=== PATIENT | male | born 1940 | race Hispanic/Latino ===

== ENCOUNTER 2017-07-02 13:13 | Inpatient (IN) | payer MEDICARE, OTHER ==
[~2017-07-02 13:13] MED LIST: ADRENALIN ONE; ATROPINE 0.1% (CARDIAC) ONE; SODIUM BICARBONATE IV ONE
[2017-07-02] MEDS ORDERED: NACL 0.9% 1000 ML 1,000 ML ONE ×2 (13:32→14:15)
[2017-07-02] MEDS ORDERED: NACL 0.9% 1000 ML 1,000 ML IV ONE ×2 (13:34→14:20)
[2017-07-02] MEDS ORDERED: VASELINE LIP THERAPY TP PRN (14:22)
[2017-07-02] MEDS ORDERED: ARTIFICIAL TEARS OPHTH OINT OU PRN (14:22)
[2017-07-02] MEDS ORDERED: INTROPIN DRIP 800 MG/D5W 250 ML 800 MG/250 ML BAG IV ONE (14:30)
--- NOTE | 2017-07-02 14:30 | Emergency Department Report ---
ED CPR HPI - General Chief Complaint: Cardiac Arrest/CPR Stated Complaint: CARDIAC ARREST Time Seen by Provider: 07/02/17 14:20 Source: EMS Mode of arrival: Stretcher Limitations: Other - History of Present Illness Initial Comments: Patient is a 76-year-old male brought by EMS in cardiac arrest,CPR in progress. Per EMS report, patient was found down 10 minutes after he left the court room to the bathroom. Initial reading by EMS was V. fib, patient received approximately 3 shock and given 300 mg of IV amiodarone, patient regained his pulse but as they approaching the ER patient lost his pulse again. Patient intubated by EMS. ET tube confirmed by auscultation. Initial rhythm in the ER was asystole, ACLS protocol continued, patient rhythm change to PEA. Patient lost his pulse several times. EKG did not show STEMI. Patient is started on IV fluids and dopamine. Triple-lumen central line right femoral placed by me and Levophed drip amiodarone drip started. There is no family at this moment. For further information please refer to code sheet. Complaint: found unresponsive Place: work Bystander CPR Performed: Yes AED Applied by Bystander/Floor Care Technician: Yes Shock Advised: Yes Number of Shocks Delivered: >3 Initial Findings in the Field: unresponsive, VTACH/VFIB Associated Injuries: No - Related Data Allergies Allergy/AdvReac Type Severity Reaction Status Date / Time Unable to Assess Allergy Unverified 07/02/17 14:15 ED Review of Systems ROS: Stated complaint: CARDIAC ARREST Other details as noted in HPI Comment: Unobtainable due to pts medical conditions ED Past Medical Hx - Social History Smoking Status: Unknown if ever smoked ED Physical Exam - General Limitations: Other General appearance: other (in cardiac arrest CPR in progress) - Head Head exam: Present: atraumatic, normocephalic, normal inspection - Eye Eye exam: Present: normal appearance, other (pupils are 4 mm fixed and dilated and nonreactive to light.) - ENT ENT exam: Present: normal exam, normal orophraynx - Neck Neck exam: Present: normal inspection - Respiratory Respiratory exam: Present: other (good breath sounds on both sides with ventilation) - Cardiovascular Cardiovascular Exam: Present: other (no pulse) - GI/Abdominal GI/Abdominal exam: Present: soft - Extremities Exam Extremities exam: Present: normal inspection - Back Exam Back exam: Present: normal inspection - Neurological Exam Neurological exam: Present: other (intubated) - Skin Skin exam: Present: warm, dry ED Course Vital Signs 07/02/17 07/02/17 07/02/17 13:12 13:13 13:14 Temperature Pulse Rate 80 124 H 124 H Respiratory 11 L 35 H 22 Rate Blood Pressure 81/39 81/39 O2 Sat by Pulse 24 L 16 L Oximetry 07/02/17 07/02/17 07/02/17 13:16 13:18 13:20 Temperature Pulse Rate 184 H 183 H 138 H Respiratory 84 H Rate Blood Pressure 81/39 O2 Sat by Pulse 74 L 51 L Oximetry 07/02/17 07/02/17 07/02/17 13:22 13:24 13:26 Temperature Pulse Rate 197 H 193 H 65 Respiratory 102 H 101 H 21 Rate Blood Pressure O2 Sat by Pulse 81 L 87 83 L Oximetry 07/02/17 07/02/17 07/02/17 13:28 13:30 13:31 Temperature Pulse Rate 64 55 L 51 L Respiratory 20 22 19 Rate Blood Pressure 91/48 62/33 O2 Sat by Pulse 86 85 82 L Oximetry 07/02/17 07/02/17 07/02/17 13:32 13:34 13:36 Temperature Pulse Rate 47 L 164 H 157 H Respiratory 9 L 81 H 104 H Rate Blood Pressure 62/33 62/33 62/33 O2 Sat by Pulse 81 L 76 L 92 Oximetry 07/02/17 07/02/17 07/02/17 13:38 13:40 13:42 Temperature Pulse Rate 151 H 192 H 55 L Respiratory 102 H 102 H 13 Rate Blood Pressure 62/33 62/33 62/33 O2 Sat by Pulse 87 86 92 Oximetry 07/02/17 07/02/17 07/02/17 13:44 13:45 13:46 Temperature Pulse Rate 61 62 62 Respiratory 21 24 24 Rate Blood Pressure 68/40 76/37 76/37 O2 Sat by Pulse 93 90 86 Oximetry 07/02/17 07/02/17 07/02/17 13:48 13:50 13:52 Temperature Pulse Rate 104 H 57 L 56 L Respiratory 18 21 5 L Rate Blood Pressure 76/37 76/37 66/36 O2 Sat by Pulse 78 L 74 L 67 L Oximetry 07/02/17 07/02/17 07/02/17 13:54 13:56 13:58 Temperature Pulse Rate 55 L 54 L 56 L Respiratory 21 24 24 Rate Blood Pressure 66/36 58/30 58/30 O2 Sat by Pulse 65 L 66 L 68 L Oximetry 07/02/17 07/02/17 07/02/17 13:59 14:00 14:02 Temperature Pulse Rate 58 L 58 L 61 Respiratory 25 H 24 21 Rate Blood Pressure 59/32 59/32 59/32 O2 Sat by Pulse 68 L 69 L 73 L Oximetry 07/02/17 07/02/17 07/02/17 14:03 14:04 14:06 Temperature Pulse Rate 63 64 66 Respiratory 25 H 22 23 Rate Blood Pressure 65/36 65/36 65/36 O2 Sat by Pulse 75 L 76 L 79 L Oximetry 07/02/17 07/02/17 07/02/17 14:08 14:10 14:12 Temperature Pulse Rate 67 69 71 Respiratory 24 24 25 H Rate Blood Pressure 65/36 65/36 65/36 O2 Sat by Pulse 80 L 80 L 81 L Oximetry 07/02/17 07/02/17 07/02/17 14:14 14:15 14:16 Temperature Pulse Rate 70 72 73 Respiratory 21 26 H 26 H Rate Blood Pressure 65/36 60/35 60/35 O2 Sat by Pulse 81 L 79 L 79 L Oximetry 07/02/17 07/02/17 07/02/17 14:18 14:20 14:22 Temperature Pulse Rate 73 75 76 Respiratory 25 H 19 22 Rate Blood Pressure 60/35 60/35 60/35 O2 Sat by Pulse 80 L 81 L 80 L Oximetry 07/02/17 07/02/17 07/02/17 14:24 14:26 14:28 Temperature Pulse Rate 76 75 74 Respiratory 18 16 15 Rate Blood Pressure 55/31 55/31 55/31 O2 Sat by Pulse 81 L 81 L 81 L Oximetry 07/02/17 07/02/17 07/02/17 14:30 14:31 14:32 Temperature Pulse Rate 111 H 71 71 Respiratory 11 L 11 L 11 L Rate Blood Pressure 90/55 56/30 56/30 O2 Sat by Pulse 88 77 L 77 L Oximetry 07/02/17 07/02/17 07/02/17 14:34 14:36 14:38 Temperature Pulse Rate 71 69 67 Respiratory 17 20 17 Rate Blood Pressure 64/33 64/33 64/33 O2 Sat by Pulse 77 L 75 L 76 L Oximetry 07/02/17 07/02/17 07/02/17 14:40 14:41 14:42 Temperature Pulse Rate 64 63 62 Respiratory 26 H 22 24 Rate Blood Pressure 64/33 60/35 60/35 O2 Sat by Pulse 76 L 76 L 79 L Oximetry 07/02/17 07/02/17 07/02/17 14:44 14:45 14:47 Temperature Pulse Rate 61 60 62 Respiratory 25 H 23 19 Rate Blood Pressure 60/35 68/40 68/40 O2 Sat by Pulse 76 L 81 L 69 L Oximetry 07/02/17 07/02/17 07/02/17 14:49 14:50 14:51 Temperature Pulse Rate 66 65 66 Respiratory 19 20 21 Rate Blood Pressure 68/40 67/40 67/40 O2 Sat by Pulse 66 L 67 L 72 L Oximetry 07/02/17 07/02/17 07/02/17 14:53 14:55 15:00 Temperature Pulse Rate 67 67 70 Respiratory 19 17 19 Rate Blood Pressure 67/40 60/35 81/39 O2 Sat by Pulse 73 L 68 L 70 L Oximetry 07/02/17 07/02/17 07/02/17 15:05 15:10 15:15 Temperature Pulse Rate 72 72 72 Respiratory 22 13 22 Rate Blood Pressure 81/39 70/37 70/37 O2 Sat by Pulse 67 L 69 L 70 L Oximetry 07/02/17 07/02/17 07/02/17 15:20 15:25 15:30 Temperature Pulse Rate 72 71 71 Respiratory 20 16 15 Rate Blood Pressure 70/45 78/43 81/42 O2 Sat by Pulse 71 L 76 L 74 L Oximetry 07/02/17 07/02/17 07/02/17 15:35 15:41 15:45 Temperature Pulse Rate 71 70 72 Respiratory 19 20 19 Rate Blood Pressure 87/40 66/39 59/36 O2 Sat by Pulse 73 L 67 L 70 L Oximetry 07/02/17 07/02/17 07/02/17 15:50 15:55 16:00 Temperature Pulse Rate 70 71 71 Respiratory 21 21 23 Rate Blood Pressure 71/39 70/38 65/40 O2 Sat by Pulse 65 L 65 L 68 L Oximetry 07/02/17 07/02/17 07/02/17 16:05 16:10 16:15 Temperature Pulse Rate 70 69 70 Respiratory 28 H 21 22 Rate Blood Pressure 63/38 68/40 67/41 O2 Sat by Pulse 56 L 59 L 62 L Oximetry 07/02/17 07/02/17 07/02/17 16:20 16:25 16:30 Temperature Pulse Rate 70 71 71 Respiratory 29 H 26 H 25 H Rate Blood Pressure 63/38 64/38 66/39 O2 Sat by Pulse 58 L 67 L Oximetry 07/02/17 07/02/17 07/02/17 16:35 16:40 16:45 Temperature Pulse Rate 69 71 70 Respiratory 22 25 H 16 Rate Blood Pressure 66/39 62/37 62/38 O2 Sat by Pulse 68 L 62 L 61 L Oximetry 07/02/17 07/02/17 07/02/17 16:50 16:55 17:01 Temperature Pulse Rate 68 70 66 Respiratory 10 L 21 11 L Rate Blood Pressure 55/32 61/34 61/34 O2 Sat by Pulse 75 L 63 L 79 L Oximetry 07/02/17 07/02/17 07/02/17 17:05 17:10 17:15 Temperature Pulse Rate 71 71 71 Respiratory 26 H 25 H 23 Rate Blood Pressure 83/46 77/50 82/45 O2 Sat by Pulse 74 L 73 L 74 L Oximetry 07/02/17 07/02/17 07/02/17 17:21 17:25 17:30 Temperature Pulse Rate 73 71 70 Respiratory 16 30 H 20 Rate Blood Pressure 89/25 89/25 84/56 O2 Sat by Pulse 73 L 73 L 72 L Oximetry 07/02/17 07/02/17 07/02/17 17:35 17:40 17:45 Temperature Pulse Rate 71 74 77 Respiratory 14 15 19 Rate Blood Pressure 77/51 90/51 90/51 O2 Sat by Pulse 73 L 72 L 74 L Oximetry 07/02/17 07/02/17 07/02/17 17:50 17:55 18:00 Temperature Pulse Rate 106 H 77 77 Respiratory 18 29 H 28 H Rate Blood Pressure 103/60 96/56 96/49 O2 Sat by Pulse 86 76 L 79 L Oximetry 07/02/17 07/02/17 07/02/17 18:05 18:11 18:15 Temperature Pulse Rate 79 79 79 Respiratory 17 25 H 31 H Rate Blood Pressure 86/56 86/56 102/63 O2 Sat by Pulse 80 L 80 L 82 L Oximetry 07/02/17 07/02/17 07/02/17 18:21 18:25 18:30 Temperature Pulse Rate 85 82 83 Respiratory 23 24 31 H Rate Blood Pressure 97/56 97/56 113/54 O2 Sat by Pulse 81 L 81 L 81 L Oximetry 07/02/17 07/02/17 07/02/17 18:34 18:35 18:41 Temperature Pulse Rate 84 89 Respiratory 24 22 29 H Rate Blood Pressure 117/54 115/72 O2 Sat by Pulse 80 L 82 L 82 L Oximetry 07/02/17 07/02/17 07/02/17 18:45 18:51 18:55 Temperature Pulse Rate 84 87 87 Respiratory 22 34 H 28 H Rate Blood Pressure 110/62 102/60 94/63 O2 Sat by Pulse 84 85 Oximetry 07/02/17 07/02/17 07/02/17 19:00 19:05 19:11 Temperature Pulse Rate 76 88 67 Respiratory 27 H 26 H 35 H Rate Blood Pressure 103/60 103/60 100/66 O2 Sat by Pulse 88 94 Oximetry 07/02/17 07/02/17 07/02/17 19:15 19:20 19:25 Temperature Pulse Rate 77 92 H 94 H Respiratory 29 H 21 35 H Rate Blood Pressure 100/66 120/80 124/74 O2 Sat by Pulse 90 90 87 Oximetry 07/02/17 07/02/17 07/02/17 19:30 19:33 19:35 Temperature 94.4 F L Pulse Rate 93 H 112 H Respiratory 24 17 Rate Blood Pressure 117/73 117/73 O2 Sat by Pulse 86 85 Oximetry 07/02/17 07/02/17 07/02/17 19:41 19:45 19:51 Temperature Pulse Rate 95 H 96 H 111 H Respiratory 21 26 H 30 H Rate Blood Pressure 117/73 117/73 90/55 O2 Sat by Pulse 85 89 88 Oximetry 07/02/17 07/02/17 07/02/17 19:55 20:00 20:05 Temperature Pulse Rate 101 H 95 H 95 H Respiratory 22 21 20 Rate Blood Pressure 90/55 84/58 84/58 O2 Sat by Pulse 89 91 89 Oximetry 07/02/17 07/02/17 07/02/17 20:11 20:15 20:21 Temperature Pulse Rate 100 H 94 H 88 Respiratory 16 16 22 Rate Blood Pressure 84/58 85/46 85/46 O2 Sat by Pulse 92 90 93 Oximetry 07/02/17 07/02/17 07/02/17 20:25 20:31 20:35 Temperature Pulse Rate 74 76 83 Respiratory 23 17 27 H Rate Blood Pressure 85/46 72/41 72/41 O2 Sat by Pulse 94 91 94 Oximetry 07/02/17 07/02/17 07/02/17 20:41 20:45 20:51 Temperature Pulse Rate 96 H 94 H 101 H Respiratory 25 H 31 H 36 H Rate Blood Pressure 72/41 122/72 122/72 O2 Sat by Pulse 90 90 89 Oximetry 07/02/17 07/02/17 07/02/17 20:55 21:01 21:05 Temperature Pulse Rate 99 H 103 H 104 H Respiratory 33 H 29 H 25 H Rate Blood Pressure 122/72 122/72 111/64 O2 Sat by Pulse 89 92 90 Oximetry 07/02/17 07/02/17 07/02/17 21:11 21:15 21:18 Temperature Pulse Rate 102 H 101 H 94 H Respiratory 28 H 27 H Rate Blood Pressure 111/64 111/64 114/65 O2 Sat by Pulse 91 91 Oximetry 07/02/17 07/02/17 07/02/17 21:21 21:25 21:30 Temperature Pulse Rate 102 H 103 H 104 H Respiratory 25 H 26 H 22 Rate Blood Pressure 114/65 114/65 109/64 O2 Sat by Pulse 92 91 90 Oximetry 07/02/17 07/02/17 07/02/17 21:35 21:41 21:45 Temperature Pulse Rate 106 H 108 H 107 H Respiratory 16 15 18 Rate Blood Pressure 109/64 109/64 113/69 O2 Sat by Pulse 92 91 91 Oximetry 07/02/17 07/02/17 07/02/17 21:51 21:55 22:00 Temperature Pulse Rate 108 H 107 H 107 H Respiratory 13 18 16 Rate Blood Pressure 109/64 109/64 108/67 O2 Sat by Pulse 93 93 92 Oximetry 07/02/17 07/02/17 07/02/17 22:05 22:11 22:15 Temperature Pulse Rate 108 H 109 H 109 H Respiratory 21 30 H 14 Rate Blood Pressure 108/67 108/67 109/69 O2 Sat by Pulse 92 92 93 Oximetry 07/02/17 07/02/17 07/02/17 22:21 22:26 22:30 Temperature Pulse Rate 109 H 110 H 110 H Respiratory 21 21 19 Rate Blood Pressure 108/67 109/69 109/69 O2 Sat by Pulse 93 93 94 Oximetry 07/02/17 07/02/17 07/02/17 22:35 22:41 22:45 Temperature Pulse Rate 109 H 110 H 111 H Respiratory 17 20 28 H Rate Blood Pressure 108/60 O2 Sat by Pulse 93 94 93 Oximetry 07/02/17 07/02/17 07/02/17 22:51 22:55 23:00 Temperature Pulse Rate 109 H 110 H 109 H Respiratory 22 31 H 18 Rate Blood Pressure 108/60 108/60 97/63 O2 Sat by Pulse 93 94 91 Oximetry 07/02/17 07/02/17 07/02/17 23:05 23:11 23:15 Temperature Pulse Rate 106 H 112 H 110 H Respiratory 30 H 19 23 Rate Blood Pressure 97/63 97/63 100/64 O2 Sat by Pulse 92 93 94 Oximetry 07/02/17 07/02/17 07/02/17 23:21 23:25 23:30 Temperature Pulse Rate 110 H 109 H 108 H Respiratory 21 26 H 25 H Rate Blood Pressure 100/64 97/63 99/57 O2 Sat by Pulse 93 93 93 Oximetry 07/02/17 07/02/17 07/02/17 23:35 23:38 23:41 Temperature Pulse Rate 109 H 108 H 106 H Respiratory 22 22 23 Rate Blood Pressure 99/57 99/57 99/57 O2 Sat by Pulse 94 93 93 Oximetry 07/02/17 07/02/17 07/02/17 23:45 23:47 23:51 Temperature Pulse Rate 108 H 108 H 107 H Respiratory 20 22 25 H Rate Blood Pressure 100/63 100/63 100/63 O2 Sat by Pulse 92 92 94 Oximetry 07/02/17 07/03/17 07/03/17 23:55 00:00 00:01 Temperature 101 F H Pulse Rate 108 H 105 H Respiratory 21 19 Rate Blood Pressure 99/57 99/57 O2 Sat by Pulse 93 92 Oximetry 07/03/17 07/03/17 07/03/17 00:05 00:11 00:15 Temperature Pulse Rate 106 H 107 H 105 H Respiratory 19 17 22 Rate Blood Pressure 99/57 99/57 99/57 O2 Sat by Pulse 93 92 92 Oximetry 07/03/17 07/03/17 07/03/17 00:21 00:25 00:31 Temperature Pulse Rate 106 H 105 H 103 H Respiratory 24 21 23 Rate Blood Pressure 99/57 99/57 99/57 O2 Sat by Pulse 93 91 92 Oximetry 07/03/17 07/03/17 07/03/17 00:35 00:41 00:45 Temperature Pulse Rate 101 H 104 H 102 H Respiratory 21 32 H 18 Rate Blood Pressure 99/57 99/57 99/57 O2 Sat by Pulse 91 92 Oximetry 07/03/17 07/03/17 07/03/17 00:51 00:55 01:01 Temperature Pulse Rate 101 H 101 H 101 H Respiratory 22 21 26 H Rate Blood Pressure 99/57 99/57 99/57 O2 Sat by Pulse 88 94 92 Oximetry 07/03/17 07/03/17 07/03/17 01:05 01:11 01:15 Temperature Pulse Rate 103 H 104 H 105 H Respiratory 28 H 22 26 H Rate Blood Pressure 99/57 99/57 63/33 O2 Sat by Pulse 85 87 85 Oximetry 07/03/17 07/03/17 07/03/17 01:21 01:25 01:27 Temperature Pulse Rate 106 H 106 H 104 H Respiratory 20 26 H Rate Blood Pressure 63/33 63/33 O2 Sat by Pulse 86 87 94 Oximetry 07/03/17 07/03/17 07/03/17 01:31 01:35 01:41 Temperature Pulse Rate 106 H 104 H 100 H Respiratory 22 24 24 Rate Blood Pressure 63/33 63/33 63/33 O2 Sat by Pulse 88 95 93 Oximetry 07/03/17 07/03/17 07/03/17 01:45 01:51 01:55 Temperature Pulse Rate 97 H 90 77 Respiratory 20 25 H 23 Rate Blood Pressure 63/33 62/30 62/30 O2 Sat by Pulse 92 94 95 Oximetry 07/03/17 07/03/17 07/03/17 02:01 02:05 02:11 Temperature Pulse Rate 56 L Respiratory 21 24 24 Rate Blood Pressure 62/30 62/30 62/30 O2 Sat by Pulse Oximetry 07/03/17 07/03/17 07/03/17 02:15 02:21 02:25 Temperature Pulse Rate Respiratory 25 H 24 24 Rate Blood Pressure 62/30 62/30 62/30 O2 Sat by Pulse 94 Oximetry 07/03/17 07/03/17 07/03/17 02:31 02:35 02:41 Temperature Pulse Rate Respiratory 16 0 L 0 L Rate Blood Pressure 62/30 62/30 62/30 O2 Sat by Pulse Oximetry - Reevaluation(s) Reevaluation #1: 07/02/17 15:51 Patient x-ray showed right pneumothorax. Chest tube is inserted in the right hemothorax, with immediate pereira of air. - Central Line Placement Right Femoral Consent Obtained: emergent situation Time Out Performed: Yes Patient Placed on Monitor/Pulse Ox: Yes MD Prep: mask, gown, gloves Central Line Prep: Povidone-Iodine 1%, Chlorhexidine scrub, sterile drapes applied Local Anesthesia Used: Lidocaine 2% Amount of Anesthesia Used (mls): 5 Central Line Lumen Inserted: triple Bloods Obtained for Lab: Yes Central Line Position: good blood return, sutured in place with 2-0 Dressing Applied: Tegaderm, sterile gauze/tape Patient Tolerated Procedure: well, no complications Complications: none - Chest Tube Chest Tube Location: fifth interspace Chest Tube Procedure: betadine prep, sterile drapes applied, sterile dressing applied Anesthesia: 1% Lidocaine Volume Anesthetic (ccs): 5 Pereira of Air Glynn: Yes Number of Attempts: 1 Tube Sutured to Skin: Yes Post Procedure CXR?: Yes ED Medical Decision Making - Lab Data Result diagrams: 07/03/17 00:59 07/03/17 00:59 Critical Care Time: Yes Critical care time in (mins) excluding proc time.: 120 Critical care attestation.: If time is entered above; I have spent that time in minutes in the direct care of this critically ill patient, excluding procedure time. ED Disposition Clinical Impression: Cardiopulmonary arrest, Pneumothorax Disposition: OP ADMIT IP TO THIS HOSP Is pt being admited?: Yes Condition: Critical
[2017-07-02 14:44] LABS: Hematocrit 36.2 % (35.5-45.6); Mean Corpuscular HGB Conc 33 % (32-34); Mean Corpuscular Hemoglobin 36 pg (28-32); Mean Corpuscular Volume 108 fl (84-94); Platelet Count 189 K/mm3 (140-440); Red Blood Count 3.35 M/mm3 (3.65-5.03); Red Cell Distribution Width 12.6 % (13.2-15.2)
[2017-07-02 14:55] LABS: Albumin 2.5 g/dL (3.9-5); Calcium 7.6 mg/dL (8.4-10.2)
[2017-07-02] MEDS ORDERED: LEVOPHED DRIP 4 MG/NS 250 ML 4 MG/250 ML BAG IV SCH ×2 (15:00→20:40)
[2017-07-02] MEDS ORDERED: DIPRIVAN 10 MG/ML 1,000 MG/100 ML BOTTLE IV SCH (15:00)
[2017-07-02] MEDS ORDERED: XYLOCAINE 1%/ EPI 1:100,000 INFILTRATI ONE (15:22)
--- NOTE | 2017-07-02 15:29 | Consultation ---
History of Present Illness Consult date: 07/02/17 Requesting physician: ANTONIA DODD Consult reason: cardiac arrest History of present illness: Patient is a 76-year-old male who is previously unknown to our practice. He is intubated and unresponsive s/p cardiac arrest with no family at bedside on evaluation and thus HPI is obtained per the chart. Pt was brought by EMS in cardiac arrest with CPR in progress. Per EMS report, patient was found down 10 minutes after he left the court room to go to the bathroom. 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 Initial reading by EMS was V. fib, patient received approximately 4 shocks and was given 300 mg of IV amiodarone, patient regained his pulse and then lost his pulse again. Pt was intubated per EMS in the field. Following arrival to ED, initial rhythm was asystole and ACLS protocol was continued with PEA noted and eventual ROSC. Also following arrival, pt was noted to have right pneumothorax with pneumomediastinum and subsequently a right-sided chest tube was placed. On evaluation, pt is on levophed and amio gtts. Decorticate posturing v. seizure like activity is noted on examination. Initial troponin is 0.035, lactic acid is 10. Past History Past Medical History: other (unable to obtain) Past Surgical History: Other (unable to obtain) Social history: other (unable to obtain ) Family history: other (unable to obtain ) Medications and Allergies Allergies Allergy/AdvReac Type Severity Reaction Status Date / Time Unable to Assess Allergy Unverified 07/02/17 14:15 Active Meds: Active Medications Hydrophilic Ointment (Vaseline Lip Therapy) 1 applic TP Q2HR PRN PRN Reason: Dry Lips Propofol (Diprivan 10 Mg/Ml) 1,000 mg in 100 mls @ 3.538 mls/hr IV TITR JIM; 5 MCG/KG/MIN PRN Reason: Protocol Norepinephrine (Levophed Drip 4 Mg/Ns 250 Ml) 4 mg in 250 mls @ 7.5 mls/hr IV TITR JIM; 2 MCG/MIN PRN Reason: Protocol Last Titration: 07/02/17 14:43 Dose: 20 mcg/min, 75 mls/hr Multi-Ingred Cream/Lotion/Oil/Oint (Artificial Tears Ophth Oint) 1 applic OU Q4HR PRN PRN Reason: Dry Eye(s) Review of Systems ROS unobtainable: due to endotracheal tube, due to mental status Physical Examination Vital Signs Pulse Resp 80 11 L 07/02/17 13:12 07/02/17 13:12 General appearance: other (intubated, nonresponsive) HEENT: Positive: Other (pupils fixed and dilated) Neck: Positive: neck supple, trachea midline Cardiac: Positive: Reg Rate and Rhythm, S1/S2 Lungs: Positive: Decreased Breath Sounds, Ventilated Respirations Neuro: Positive: Other (unresponsive, decorticate v. seizure like activity noted ) Abdomen: Positive: Soft Skin: Positive: Clear. Negative: Rash, Wound Musculoskeletal: No Fluid Collection Extremities: Absent: edema Results 07/03/17 00:59 07/03/17 00:59 Cardiac Enzymes 07/02/17 Range/Units Unknown AST 211 H (5-40) units/L CBC 07/02/17 Range/Units Unknown WBC 10.4 (4.5-11.0) K/mm3 RBC 3.35 L (3.65-5.03) M/mm3 Hgb 12.0 (11.8-15.2) gm/dl Hct 36.2 (35.5-45.6) % Plt Count 189 (140-440) K/mm3 Lymph # [facility] Comprehensive Metabolic Panel 07/02/17 Range/Units Unknown Sodium 142 (137-145) mmol/L Potassium 4.8 (3.6-5.0) mmol/L Chloride 97.1 L (98-107) mmol/L Carbon Dioxide 23 (22-30) mmol/L BUN 27 H (9-20) mg/dL Creatinine 1.5 (0.8-1.5) mg/dL Glucose 180 H (75-100) mg/dL Calcium 7.6 L (8.4-10.2) mg/dL AST 211 H (5-40) units/L ALT 261 H (7-56) units/L Alkaline Phosphatase 55 (35-129) units/L Total Protein 5.0 L (6.3-8.2) g/dL Albumin 2.5 L (3.9-5) g/dL - Imaging and Cardiology Echo: pending EKG: report reviewed, image reviewed EKG interpretations - Telemetry EKG Rhythm: Sinus Rhythm - EKG Sinus rhythms and dysrhythmias: sinus rhythm Repolarization changes or abnormalities: ST or T wave suggestive of ischemia ( gross) Assessment and Plan Assessment: S/p VF and PEA cardiac arrest Acute respiratory failure - intubated Abnormal ECG - with diffuse ischemia Minimally elevated trop x 1 set AMS / decorticate posturing v. seizures Right pneumothorax with pneumomediastinum - s/p chest tube Lactic acidosis Transaminitis Plan: Obatin echo. Cont amio gtt. Cont to trend Vida. Repeat EKG in AM. Cont supportive measures. The patient has been seen in conjunction with Dr. Argueta who agrees with the assessment and plan of care.
--- NOTE | 2017-07-02 15:35 | XRay Report ---
AP CHEST: HISTORY: Cardiac arrest, CPR performed No comparison. A medium right pneumothorax is identified which is estimated at 25%. Pneumomediastinum is also identified. There are mild congestive changes in the left lung but no left pneumothorax. An endotracheal tube has been inserted which terminates 3.6 cm superior to the alessandro. Heart size is within normal limits. IMPRESSION: Right pneumothorax. Pneumomediastinum. These findings were discussed with Dr. Deleon in the emergency department at 1445 hrs.
[2017-07-02 15:40] LABS: INR 1.18 (0.87-1.13)
[2017-07-02 15:41] LABS: Partial Thromboplastin Time 33.4 Sec. (24.2-36.6)
[2017-07-02] MEDS ORDERED: NEO-SYNEPHRINE 100 MG in NACL 0.9% 90 ML IV ONE (16:17)
[2017-07-02 16:28] LABS: Chol/HDL Ratio 3.52 %
[2017-07-02] MEDS ORDERED: VANCOMYCIN/0.45 NS 1 GM/250 ML 1 GM/250 ML BAG IV ONE (16:37)
[2017-07-02] MEDS ORDERED: ZOSYN/NS 4.5GM/100ML 4.5 GM/100 ML VIAL IV ONE (17:00)
--- NOTE | 2017-07-02 17:06 | XRay Report ---
FINAL REPORT EXAM: XR CHEST 1V AP HISTORY: post chest tube TECHNIQUE: Frontal chest x-ray performed portably Comparison: None FINDINGS: Patient is intubated with endotracheal tube tip well above the alessandro. A small bore chest tube projects over the right hemithorax. The right lung is dense and there is is at least a 10-20 percent right pneumothorax, limited by visualization on this frontal view. Heart size is mildly enlarged. Both lung apices are clipped. There is subcutaneous and intramuscular air. There is an ill-defined fairly dense infiltrate of the left upper lobe. There is lucency along the AP window. Pneumomediastinum may be present. Left costophrenic angle is clipped. IMPRESSION: No priors for comparison. On the current exam, the patient is intubated with endotracheal tube tip well above the alessandro. There is a small bore chest tube projecting over the right mid hemithorax with at least a 10-20 percent pneumothorax, limited visualization on the single view. The entire right lung is dense. There is air in the region of the AP window. Pneumomediastinum may be present. Both lung apices and the left costophrenic angle are clipped. There is cardiomegaly. The aortic arch is prominent and mildly irregular. Cannot exclude aneurysm. There is ill-defined increased density of the left lung suggesting diffuse infiltrate.
[2017-07-02 18:01] LABS: Total Cells Counted 100
[2017-07-02 18:02] LABS: Anisocytosis 1+; Basophils % (Manual) 0 % (0.0-1.8); Myelocytes # (Manual) 0.1 K/mm3; Platelet Estimate Consistent w Auto; Poikilocytosis 1+
[2017-07-02 19:07] LABS: Bilirubin,Urine NEG (Negative); Blood,Urine LG (Negative); Color,Urine Red (Yellow); Mucus,Urine 3+ /HPF; Nitrite,Urine NEG (Negative); RBC,Urine > 182.0 /HPF (0.0-6.0); Urobilinogen,Urine < 2.0 mg/dL (<2.0)
[2017-07-02] MEDS ORDERED: INTROPIN DRIP 800 MG/D5W 250 ML 800 MG/250 ML BAG IV SCH (20:00)
--- NOTE | 2017-07-02 23:53 | Event Note ---
Date: 07/02/17 S/ Cardiac Arrest Anoxic Encephalopathy Rt Pneumothorax
[2017-07-03] MEDS ORDERED: ZOFRAN IV PRN (00:24)
[2017-07-03] MEDS ORDERED: DULCOLAX PR PRN (00:24)
[2017-07-03] MEDS ORDERED: DILAUDID IV PRN (00:24)
[2017-07-03] MEDS ORDERED: TYLENOL PO PRN (00:24)
[2017-07-03] MEDS ORDERED: MILK OF MAGNESIA PO PRN (00:24)
[2017-07-03] MEDS ORDERED: MORPHINE IV PRN (00:59)
[2017-07-03] MEDS ORDERED: D5NS 1,000 ML IV SCH (01:00)
[2017-07-03] MEDS ORDERED: ATIVAN ONE (01:25)
[2017-07-03 01:36] LABS: Albumin 3.2 g/dL (3.9-5); Calcium 7.6 mg/dL (8.4-10.2)
[2017-07-03] MEDS ORDERED: ATIVAN IV ONE (01:37)
[2017-07-03 01:55] LABS: Hematocrit 41.2 % (35.5-45.6); Hemoglobin 13.6 gm/dl (11.8-15.2); Mean Corpuscular HGB Conc 33 % (32-34); Mean Corpuscular Hemoglobin 35 pg (28-32); Mean Corpuscular Volume 107 fl (84-94); Platelet Count 236 K/mm3 (140-440); Red Blood Count 3.85 M/mm3 (3.65-5.03)
[2017-07-03 02:12] VITALS: BP 62/30
[2017-07-03] MEDS ORDERED: ZOSYN/NS 3.375GM/50ML 3.375 GM/50 ML BAG IV SCH (04:00)
--- NOTE | 2017-07-03 04:23 | Death Summary ---
Summary - Providers Date of service: 07/03/17 Consults: 07/02/17 15:42 Consult to Physician [CONS] Stat Consulting Provider: GILES DENISE Reason For Exam: cardiac arrest, initial rhythm was V. fib Place consult to:: yes Notified:: discussed with his nurse practitioner Sisi. 07/03/17 00:31 Consult to Physician [CONS] Routine Consulting Provider: EH MILES Reason For Exam: Cardiac arrest Notified:: yes Attending: BELTRAN BEAR - summary Date of admission: 07/02/17 21:24 Date of : 07/03/17 (time of - 2:30 a.m.) Reason for admission: status post cardiac arrest Significant findings: Family to care Patient in asystole Unresponsive no spontaneous breathing No breath sounds no pulses no heart sounds No pulses Pupils fixed and dilated Disposition: Patient pronounced at 2:30 AM
[2017-07-03 05:49] LABS: Band Neutrophils # (Manual) 5.7 K/mm3; Basophils % (Manual) 0 % (0.0-1.8); Eosinophils % (Manual) 0 % (0.0-4.3); Total Cells Counted 100
[2017-07-03 05:50] LABS: Anisocytosis Few; Large Platelets Rare; Stomatocytes Rare
[2017-07-03] MEDS ORDERED: LOVENOX SUB-Q SCH ×2 (10:00)
--- NOTE | 2017-07-03 22:18 | History and Physical Report ---
CHIEF COMPLAINT: Cardiac arrest. CPR in progress. HISTORY OF PRESENT ILLNESS: A 76-year-old man with extensive history of coronary artery disease and stents, obtained from his physician friend, who was found in cardiac arrest in the courtroom when he went to the restroom. He was in cardiac arrest in the restroom. CPR was initiated and the patient was brought in as ACLS protocol was going on. The patient was in VFib. He was given shock 3 times and amiodarone 300 mg IV. The patient regained pulse. The patient was intubated by EMS. was confirmed by auscultation. Initial rhythm in the ER was asystole. ACLS protocol continued. The patient's rhythm changed to pulseless electrical activity. The patient lost his pulse several times. EKG did not show STEMI. The patient was started on IV fluids and IV dopamine, triple lumen central line was placed in the right femoral. The Levophed was started, amiodarone drip was started. No family was there at the time of ACLS protocol. PAST MEDICAL HISTORY: Significant for extensive cardiac history obtained from his doctor friend, Dr. Putnam, who is a utility bill collection clerk at [employer]. REVIEW OF SYSTEMS: Could not be done. The patient intubated. PAST SURGICAL HISTORY: Unavailable. FAMILY HISTORY: Unavailable. MEDICATIONS: Unavailable. PHYSICAL EXAMINATION: GENERAL: The patient intubated, decorticated posturing present. VITAL SIGNS: Blood pressure was , respiratory rate was 24, on vent sats were 94%. HEENT: Pupils slightly dilated, but reactive. NECK: Supple. No lymphadenopathy, no thyromegaly. ET tube in place. LUNGS: Scattered rhonchi bilaterally. CARDIOVASCULAR: S1, S2 heard. Irregular. GASTROINTESTINAL: Abdomen soft and benign. No hepatosplenomegaly. No guarding, no rigidity. EXTREMITIES: Pedal pulses were felt very weak. CENTRAL NERVOUS SYSTEM: The patient does have decorticated posturing. SKIN: Normal. LABORATORY DATA: Significant for white count of 10,400, hemoglobin of 12, hematocrit of 36.2, platelet count of 189,000. ABG was significant for pH of 7.245, pCO2 of 55.5, pO2 of 47. Lactic acid was 8.1. Glucose was 204, BUN and creatinine was 27 and 1.5, sodium is 142, potassium was 4.8, chloride was 97. Repeat BUN and creatinine was 41 and 2.4. Urine showed rbc's more than 182. ASSESSMENT AND PLAN: 1. Status post cardiac arrest. The patient revert, patient ventilated. The patient on ventilator. Continue vent management. Continue dopamine and Levophed to support the blood pressure. 2. Acute respiratory failure. Continue vent management. Critical care consult requested. 3. Hypotension, treated aggressively with Levophed and dopamine. IV fluids. 4. Acute kidney injury secondary to hypoperfusion, acute tubular necrosis. Continue IV fluids. 5. Elevated lactic acid secondary to probably hypoxia and anoxia. The patient given empiric antibiotics. 5. Arrhythmias, continue amiodarone. DISPOSITION: Talked with Dr. Putnam, who is the power of [employer]. He agreed for DNR status. DNR status initiated, but he wanted the pressors to be continued. Critical care time is about 45 minutes. CRITICAL CARE STATEMENT: The high probability of a clinically significant sudden or life-threatening deterioration of the pulmonary, cardiac, and renal systems required my full and direct attention, intervention, and personal management. The aggregate critical care time was 45 minutes: The time is in addition to time spent performing reported procedures, but includes the following, data review and interpretation, patient assessment and monitoring of vital signs, documentation, medication orders, and management. JOB# [id number] JESSY/JACK
== END 2017-07-03 05:15 | DRG 208 ==
LOC: ED 13:13 → CC1 21:24
PROVIDERS: ADMIT Internal Medicine; ATTEND Internal Medicine
PROC: 05HY33Z Insertion of Infusion Device into Upper Vein, Percutaneous Approach (ICD-10-PCS; principal; 2017-07-02)
PROC: 5A1935Z Respiratory Ventilation, Less than 24 Consecutive Hours (ICD-10-PCS; 2017-07-02)
PROC: 0W9930Z Drainage of Right Pleural Cavity with Drainage Device, Percutaneous Approach (ICD-10-PCS; 2017-07-02)
PROC: 0BH17EZ Insertion of Endotracheal Airway into Trachea, Via Natural or Artificial Opening (ICD-10-PCS; 2017-07-02)
PROC: 5A12012 Performance of Cardiac Output, Single, Manual (ICD-10-PCS; 2017-07-02)
PROC: 06HM33Z Insertion of Infusion Device into Right Femoral Vein, Percutaneous Approach (ICD-10-PCS; 2017-07-02)
DX: J96.00 Acute respiratory failure, unspecified whether with hypoxia or hypercapnia (principal); J93.9 Pneumothorax, unspecified; E87.2 Acidosis; G93.1 Anoxic brain damage, not elsewhere classified; I46.9 Cardiac arrest, cause unspecified
CPT/HCPCS: 36415; 71045; 80053; 80061; 81001; 82140; 82803; 82962; 83036; 84484; 85007; 85025; 85610; 85730; 93005; 93010; 94002; J0171; J0461; J1265; J2060; J2370; J2543; J2704; J3370; J7030